=== PATIENT | male | born 1995 | race Native Hawaiian/Other Pacific Islander ===

== ENCOUNTER 2020-06-04 13:40 | Outpatient (CLI) | payer MEDICAID | END 2020-06-04 13:41 | disposition home or self-care (01) | LOC: COV 13:40 | PROVIDERS: ATTEND Family Medicine | DX: R05 Cough (principal); Z20.828 Contact with and (suspected) exposure to other viral communicable diseases; R09.81 Nasal congestion; J02.9 Acute pharyngitis, unspecified; R19.7 Diarrhea, unspecified ==